=== PATIENT | male | born 1950 | race Two or more races ===

== ENCOUNTER 2022-10-30 06:08 | Inpatient (IN) | payer MEDICARE, MEDICAID ==
[~2022-10-30] VITALS: Ht 172.7 cm; Wt 92.9 kg
[2022-10-30] MEDS ORDERED: SODIUM CHLORIDE 0.9% 1,000 ML IV ONE (07:00)
[2022-10-30 07:44] LABS: Basophils # (auto) 0 10 ^3/uL (0-0.2); Basophils % (auto) 0.5 % (0.0-2.0); Eosinophils # (auto) 0.2 10 ^3/uL (0-0.8); Hematocrit 48.1 % (41.0-53.0); Hemoglobin 15.9 g/dL (13.5-17.5); Lymphocytes # (auto) 1.2 10 ^3/uL (0.4-5.4); Lymphocytes % (auto) 14.7 % (10.0-50.0); Mean Corpuscular Hemoglobin 30.8 pg (28.0-32.0); Mean Corpuscular Volume 93.5 fL (80.0-100.0); Monocytes # (auto) 0.5 10 ^3/uL (0-1.3); Monocytes % (auto) 5.7 % (0.0-12.0); Neutrophils # (auto) 6.4 10 ^3/uL (1.6-8.6); Neutrophils % (auto) 76.1 % (37.0-80.0); Red Blood Cells 5.15 10^6/uL (4.5-5.90); Red Cell Distribution Width 13.5 % (11.8-14.3); White Blood Cell 8.3 10^3/uL (4.4-10.8)
[2022-10-30 08:07] LABS: Albumin 3.8 g/dL (3.4-5.0); Calcium 10.1 mg/dL (8.5-10.1); Potassium 4.5 mmol/L (3.5-5.1)
[2022-10-30 08:09] LABS: BUN/Creatinine Ratio 15.4; Bilirubin, Total 0.7 mg/dL (0.2-1.0); Total Protein 7.4 g/dL (6.4-8.2)
[2022-10-30] MEDS ORDERED: ACETAMINOPHEN 325 MG TAB PO PRN (11:00)
[2022-10-30] MEDS ORDERED: ONDANSETRON HCL 4 MG/2 ML VIAL IV PRN (11:00)
[2022-10-30] MEDS ORDERED: MORPHINE SULFATE INJ 2 MG/ml SYRG IV PRN (11:00)
[2022-10-30] MEDS ORDERED: DOCUSATE SOD 100 MG CAP PO PRN (11:00)
[2022-10-30] MEDS ORDERED: NITROGLYCERIN 0.4 MG SL TAB SL PRN (11:00)
[2022-10-30] MEDS ORDERED: ALLO100T PO (11:10)
[2022-10-30] MEDS ORDERED: ATOR20TA50 PO (11:10)
[2022-10-30] MEDS ORDERED: TAMS0.4C36 PO (11:10)
[2022-10-30] MEDS: TAMSULOSIN HYDROCHLORIDE 0.4 MG CAP PO SCH (18:54)
[2022-10-30] MEDS ORDERED: CHLO25TA2 PO (21:41)
[2022-10-30] MEDS ORDERED: METF-372 PO (21:41)
[2022-10-30] MEDS ORDERED: GLIP5TAB12 PO (21:41)
[2022-10-30] MEDS ORDERED: DEXTROSE (50%) 50ML SYRG IV PRN (22:00)
[2022-10-30] MEDS: ACCU-CHEK COMFORT CURVE STRIP VI SCH (22:32)
[2022-10-30] MEDS: ATORVASTATIN 20 MG TAB PO SCH (22:41)
[2022-10-30] MEDS: InsuLIN REG 1unit/0.01ml Soln (100units/ml) SC SCH (22:43)
[2022-10-30 23:05] LABS: Urine Bacteria NONE SEEN /hpf (None Seen); Urine Blood Negative /uL (Negative); Urine Mucus FEW (None Seen); Urine Specific Gravity 1.011 (1.001-1.035); Urine WBC <1 /hpf (0 - 3)
[2022-10-31 05:38] LABS: Basophils # (auto) 0 10 ^3/uL (0-0.2); Basophils % (auto) 0.3 % (0.0-2.0); Eosinophils # (auto) 0.3 10 ^3/uL (0-0.8); Eosinophils % (auto) 4.7 % (0.0-7.0); Hematocrit 42.7 % (41.0-53.0); Hemoglobin 13.9 g/dL (13.5-17.5); Lymphocytes # (auto) 1.3 10 ^3/uL (0.4-5.4); Mean Corpuscular Hemoglobin 30.4 pg (28.0-32.0); Mean Corpuscular Hgb Conc. 32.7 g/dL (32.0-36.0); Mean Corpuscular Volume 92.9 fL (80.0-100.0); Monocytes # (auto) 0.6 10 ^3/uL (0-1.3); Monocytes % (auto) 9.9 % (0.0-12.0); Neutrophils # (auto) 3.8 10 ^3/uL (1.6-8.6); Neutrophils % (auto) 63.1 % (37.0-80.0); Nucleated Red Blood Cells % 0.2 %; Red Blood Cells 4.59 10^6/uL (4.5-5.90); Red Cell Distribution Width 13.4 % (11.8-14.3); White Blood Cell 6.1 10^3/uL (4.4-10.8)
[2022-10-31 05:48] LABS: Albumin 3.6 g/dL (3.4-5.0)
[2022-10-31 05:50] LABS: BUN/Creatinine Ratio 15.8; Bilirubin, Total 0.5 mg/dL (0.2-1.0); Total Protein 6.5 g/dL (6.4-8.2)
[2022-10-31] MEDS: ACCU-CHEK COMFORT CURVE STRIP VI SCH ×4 (06:37→22:28)
[2022-10-31] MEDS: InsuLIN REG 1unit/0.01ml Soln (100units/ml) SC SCH ×4 (06:39→22:34)
[2022-10-31] MEDS: PANTOPRAZOLE 40 MG/10 ML VIAL INJ IV SCH (13:59)
[2022-10-31] MEDS: ALLOPURINOL 100 MG TAB PO SCH (13:59)
[2022-10-31] MEDS: SODIUM CHLORIDE 0.9% 1,000 ML IV SCH ×4 (14:00→22:00)
[2022-10-31] MEDS: TAMSULOSIN HYDROCHLORIDE 0.4 MG CAP PO SCH (18:07)
[2022-10-31] MEDS: ATORVASTATIN 20 MG TAB PO SCH (22:06)
[2022-11-01] MEDS: SODIUM CHLORIDE 0.9% 1,000 ML IV SCH ×3 (06:24→20:38)
[2022-11-01] MEDS: ACCU-CHEK COMFORT CURVE STRIP VI SCH ×4 (06:58→21:41)
[2022-11-01] MEDS: InsuLIN REG 1unit/0.01ml Soln (100units/ml) SC SCH ×4 (07:05→21:29)
[2022-11-01] MEDS: PANTOPRAZOLE 40 MG/10 ML VIAL INJ IV SCH (10:19)
[2022-11-01] MEDS: ALLOPURINOL 100 MG TAB PO SCH (10:19)
[2022-11-01 13:24] VITALS: BP 140/76
[2022-11-01] MEDS ORDERED: CHOL1TAB28 PO (14:28)
[2022-11-01] MEDS ORDERED: LOSA-39 PO (14:28)
[2022-11-01] MEDS ORDERED: AMLO-489 PO (14:28)
[2022-11-01] MEDS: TAMSULOSIN HYDROCHLORIDE 0.4 MG CAP PO SCH (17:50)
[2022-11-01] MEDS: HYDROcodone-ACET 5/325MG TAB PO PRN (17:50)
[2022-11-01] MEDS: ATORVASTATIN 20 MG TAB PO SCH (21:40)
[2022-11-01 22:00] VITALS: BP 135/65
[2022-11-02 05:00] VITALS: BP 122/58
[2022-11-02] MEDS: SODIUM CHLORIDE 0.9% 1,000 ML IV SCH ×3 (06:06→18:35)
[2022-11-02 06:07] LABS: Calcium 8.7 mg/dL (8.5-10.1); Magnesium 1.6 mg/dL (1.6-2.6); Potassium 3.7 mmol/L (3.5-5.1)
[2022-11-02] MEDS: HYDROcodone-ACET 5/325MG TAB PO PRN ×3 (06:07→15:04)
[2022-11-02 06:10] LABS: BUN/Creatinine Ratio 13.4
[2022-11-02] MEDS: InsuLIN REG 1unit/0.01ml Soln (100units/ml) SC SCH ×4 (06:25→21:22)
[2022-11-02] MEDS: ACCU-CHEK COMFORT CURVE STRIP VI SCH ×4 (06:36→21:22)
[2022-11-02 09:00] VITALS: BP 140/77
[2022-11-02] MEDS: ALLOPURINOL 100 MG TAB PO SCH (10:26)
[2022-11-02 13:13] VITALS: BP 139/70
[2022-11-02 17:00] VITALS: BP 133/76
[2022-11-02] MEDS: TAMSULOSIN HYDROCHLORIDE 0.4 MG CAP PO SCH (18:35)
[2022-11-02] MEDS: COLCHICINE 0.6 MG CAP PO SCH (20:59)
[2022-11-02] MEDS: ATORVASTATIN 20 MG TAB PO SCH (20:59)
[2022-11-02 22:00] VITALS: BP 169/98
[2022-11-03] MEDS: SODIUM CHLORIDE 0.9% 1,000 ML IV SCH ×2 (01:00→10:11)
[2022-11-03] MEDS: HYDROcodone-ACET 5/325MG TAB PO PRN ×2 (04:54→10:09)
[2022-11-03 05:00] VITALS: BP 148/89
[2022-11-03] MEDS: InsuLIN REG 1unit/0.01ml Soln (100units/ml) SC SCH ×2 (06:39→12:35)
[2022-11-03] MEDS: ACCU-CHEK COMFORT CURVE STRIP VI SCH ×2 (07:00→12:35)
[2022-11-03 09:00] VITALS: BP 131/72
[2022-11-03] MEDS: COLCHICINE 0.6 MG CAP PO SCH (10:08)
[2022-11-03] MEDS: ALLOPURINOL 100 MG TAB PO SCH (10:09)
[2022-11-03] MEDS ORDERED: COLC1TAB3 PO (11:27)
[2022-11-03] MEDS ORDERED: HYDR-4902 PO (11:27)
[2022-11-03 12:37] VITALS: BP 140/72
[2022-11-03 13:08] VITALS: BP 131/72
[2022-11-04 11:35] LABS: Hepatitis C Antibody Negative (Negative)
== END 2022-11-03 13:54 | disposition home or self-care (01) | DRG 682 ==
LOC: EDBD 06:08 → ER 06:08 → TELE 11:09 → TELE-E-ADS 11-01 11:34 → TELE-WESTW 11-01 16:04
PROVIDERS: ADMIT Nurse Practitioner Family; ATTEND Family Medicine
DX: N17.9 Acute kidney failure, unspecified (principal); G93.41 Metabolic encephalopathy; E11.22 Type 2 diabetes mellitus with diabetic chronic kidney disease; E78.5 Hyperlipidemia, unspecified; I12.9 Hypertensive chronic kidney disease with stage 1 through stage 4 chronic kidney disease, or unspecified chronic kidney disease; N18.9 Chronic kidney disease, unspecified; E86.0 Dehydration; E66.9 Obesity, unspecified; R55 Syncope and collapse; M10.9 Gout, unspecified; N40.0 Benign prostatic hyperplasia without lower urinary tract symptoms; Z87.891 Personal history of nicotine dependence; Z91.81 History of falling; Z20.822 Contact with and (suspected) exposure to COVID-19
CPT/HCPCS: 36415; 70450; 71045; 74176; 80048; 80053; 80061; 81001; 82550; 82962; 83036; 83735; 84443; 84484; 85025; 85379; 86803; 87340; 87426; 93306; 93886; 96361; 96374; 97163; C9113; G0378; J1815